=== PATIENT | female | born 1965 | race Caucasian/White ===

== ENCOUNTER 2017-04-08 10:02 | Inpatient (IN) | payer OTHER ==
[~2017-04-08] VITALS: Ht 154.9 cm; Wt 99.3 kg
[2017-04-08] VITALS (11 sets, daily range): BP systolic 131–161; BP diastolic 76–106; PULSE 89–106; RESP 16–21; TEMP 96.3–99.9; O2SAT 91–97
[~2017-04-08 10:02] MED LIST: ALBU2.5I INH; ALBU8I INH; AMBI10TA PO; ATOR20TA PO; BUTA1CAP7 PO; CARI1TAB34 PO; CITA20 PO; DICL75 PO; GLIM2TAB PO; IPRA0.02 NEB; LEVA500T PO; LISI-360 PO; LOSA25 PO; NOVORP2 SQ; PERC5TAB12 PO; PRED10 PO; PROT40TA PO; TRAZ150T2 PO; XANA1TAB6 PO
[2017-04-08] MEDS ORDERED: GLIM4TAB PO (10:22)
[2017-04-08] MEDS ORDERED: CITA40TA4 PO (10:22)
[2017-04-08] MEDS ORDERED: OXYC-432 PO (10:22)
[2017-04-08] MEDS ORDERED: ATOR20TA15 PO (10:22)
[2017-04-08] MEDS ORDERED: PANT40TA3 PO (10:22)
[2017-04-08] MEDS ORDERED: FLUTI220I INH (10:22)
[2017-04-08] MEDS ORDERED: ALBU0.08 NEB (10:22)
[2017-04-08] MEDS ORDERED: SOMA350T PO (10:22)
[2017-04-08] MEDS ORDERED: ESTR1.25 PO (10:22)
[2017-04-08] MEDS ORDERED: LOSA50TA PO (10:22)
[2017-04-08] MEDS ORDERED: ALPR0.5T3 PO (10:22)
[2017-04-08] MEDS ORDERED: ZOLP10TA3 PO (10:22)
[2017-04-08] MEDS ORDERED: RESP: RACEPINEPHRINE 2.25% 0.5 ML NEB NEB ONE (10:30)
[2017-04-08] MEDS ORDERED: DEXAMETHASONE SOD PHOS 20 MG/5 ML VIAL IV PUSH ONE (10:30)
--- NOTE | 2017-04-08 10:34 | PD ---
HPI Chief Complaint: Chest Pain Time Seen by Provider: 10:20 Travel History International Travel<30 days: No Contact w/Intl Traveler<30days: No Traveled to known affect area: No History of Present Illness HPI The patient was seen and examined in the presence of the nurse. This patient complains of shortness of breath and dry hacking cough. She has chest pain. Symptoms have been going on 3 days. Pain is worse with certain movement or pressure or deep breath. She has COPD and has chronically very bad lungs. She quit smoking 6 years ago. She has no cardiac disease. Symptoms severity is moderate. No alleviating factors. PFSH Past Medical History Arthritis: Yes (ARTHRITIS) Asthma: Yes Autoimmune Disease: No Bipolar Disorder: Yes Anxiety: Yes Depression: Yes (BIPOLAR) Heart Rhythm Problems: No Cancer: Yes (UTERINE) Cardiac Catheterization: No Cardiovascular Problems: No High Cholesterol: Yes Chemotherapy: No Chest Pain: No Congestive Heart Failure: No COPD: Yes Cerebrovascular Accident: No Coronary Artery Disease: No Diabetes: Yes Patient Takes Glucophage: No Diminished Hearing: No Endocrine: No Fibromyalgia: Yes Gastrointestinal Disorders: No GERD: No Genitourinary: No Hiatal Hernia: No Hypertension: Yes Immune Disorder: No Implanted Vascular Access Dvce: No Kidney Stones: No Musculoskeletal: Yes (FIBROMYALGIA) Neurologic: Yes Psychiatric: Yes (ANXIETY) Reproductive: No Respiratory: Yes Immunizations Current: Yes Migraines: Yes Pneumonia: Yes Radiation Therapy: No Renal Failure: No Sleep Apnea: No Thyroid Disease: No Ulcer: No Influenza Vaccination: No ?: Not Menopausal: Yes : 0 Past Surgical History Abdominal Surgery: No AICD: No Arteriovenous Shunt: No Cardiac Surgery: No Coronary Artery Bypass Graft: No Ear Surgery: No Endocrine Surgery: No Eye Surgery: No Genitourinary Surgery: No Gynecologic Surgery: Yes (HYSTERECTOMY) Hysterectomy: Yes Insulin Pump: No Joint Replacement: Yes (METAL IMPLANT IN LEFT KNEE RT KNEE) Oral Surgery: No Pacemaker: No Thoracic Surgery: No Tonsillectomy: Yes Other Surgery: Yes (LEFT TOTAL KNEE) Family History Family Myocardial Infarction: Yes Social History Alcohol Use: No Tobacco Use: No (QUIT 2011) Substance Use: No Allergies-Medications (Allergen,Severity, Reaction): Coded Allergies: Fluoxetine (Verified Allergy, Severe, MAKE MORE DEPRESSED, 04/08/17) Sulfa (Verified Allergy, Severe, SWELLING AND TONGUE BLISTERS, 04/08/17) Dilaudid (Unverified Allergy, Intermediate, ITCHING, 04/08/17) Metformin (Verified Adverse Reaction, Intermediate, "MAKES ME FEEL LIKE CRAP", 04/08/17) Reported Meds & Prescriptions Reported Meds & Active Scripts Active Reported Albuterol Neb (Albuterol Sulfate) 2.5 Mg/3 Ml Neb 2.5 Inh NEB TID NEB PRN Citalopram (Citalopram Hydrobromide) 40 Mg Tab 40 Mg PO HS Flovent Hfa 12 GM Inh (Fluticasone Propionate) 220 Mcg/Act Inh 2 Puff INH BID Use daily at the same time. Atorvastatin (Atorvastatin Calcium) 20 Mg Tab 20 Mg PO HS Glimepiride 4 Mg Tab 4 Mg PO BIDAC Losartan (Losartan Potassium) 50 Mg Tab 50 Mg PO DAILY Pantoprazole (Pantoprazole Sodium) 40 Mg Tab 40 Mg PO BID Soma (Carisoprodol) 350 Mg Tab 350 Mg PO BID PRN Zolpidem (Zolpidem Tartrate) 10 Mg Tab 10 Mg PO HS PRN Oxycodone-Acetaminophen 5-325 mg Tab 1 Tab PO TID PRN Alprazolam 0.5 Mg Tab 0.5 Mg PO Q6H PRN Premarin (Estrogens Conjugated) 1.25 Mg Tab 1.25 Mg PO DAILY Review of Systems General / Constitutional: No: Fever Eyes: No: Visual changes HENT: No: Headaches Cardiovascular: Positive: Chest Pain or Discomfort Respiratory: Positive: Cough, Shortness of Breath Gastrointestinal: No: Abdominal Pain Genitourinary: No: Dysuria Musculoskeletal: No: Pain Skin: No Rash Neurologic: No: Weakness Psychiatric: No: Depression Endocrine: No: Polydipsia Hematologic/Lymphatic: No: Easy Bruising Physical Exam Narrative GENERAL: Well-nourished, well-developed patient with chest pain and stridor and dry hacking cough. SKIN: Focused skin assessment reveals no rash and nodules. Skin is Warm and dry. HEAD: Atraumatic. Normocephalic. EYES: Pupils equal and round. No scleral icterus. No injection or drainage. ENT: No nasal bleeding or discharge. Mucous membranes pink and moist. NECK: Trachea midline. No JVD. CARDIOVASCULAR: Regular rate and rhythm. No murmur appreciated. RESPIRATORY: No accessory muscle use. Clear to auscultation in the lung dubon but she has mild stridor. Breath sounds equal bilaterally. GASTROINTESTINAL: Abdomen soft, non-tender, nondistended. Hepatic and splenic margins not palpable. MUSCULOSKELETAL: No obvious deformities. No clubbing. No cyanosis. No edema. Has very clear-cut and readily reproducible chest wall tenderness on either side of sternum. NEUROLOGICAL: Awake and alert. No obvious cranial nerve deficits. Motor grossly within normal limits. Normal speech. PSYCHIATRIC: Appropriate mood and affect; insight and judgment normal. Data Data Last Documented VS Vital Signs Date Time Temp Pulse Resp B/P Pulse Ox O2 Delivery O2 Flow Rate FiO2 04/08/17 11:30 90 18 131/77 95 Nasal Cannula 1 04/08/17 10:07 98.5 Orders Electrocardiogram (04/08/17 10:12) Complete Blood Count With Diff (04/08/17 10:12) Basic Metabolic Panel (Bmp) (04/08/17 10:12) Ckmb (Isoenzyme) Profile (04/08/17 10:12) Troponin I (04/08/17 10:12) Chest, Single Ap (04/08/17 10:12) Iv Access Insert/Monitor (04/08/17 10:12) Ecg Monitoring (04/08/17 10:12) Oxygen Administration (04/08/17 10:12) Oximetry (04/08/17 10:12) Racemic Epinephrine 2.25% Neb (Racepinep (04/08/17 10:30) Dexamethasone Inj (Decadron Inj) (04/08/17 10:30) Soft Tissue Neck (04/08/17 ) Albuterol-Ipratropium Neb (Duoneb Neb) (04/08/17 11:45) Albuterol-Ipratropium Neb (Duoneb Neb) (04/08/17 11:45) Ceftriaxone Inj (Rocephin Inj) (04/08/17 12:00) Azithromycin Inj (Zithromax Inj) (04/08/17 12:00) Admit Order (Ed Use Only) (04/08/17 12:00) Labs Laboratory Tests Test 04/08/17 10:30 White Blood Count 12.7 TH/MM3 Red Blood Count 5.31 MIL/MM3 Hemoglobin 13.0 GM/DL Hematocrit 41.8 % Mean Corpuscular Volume 78.7 FL Mean Corpuscular Hemoglobin 24.5 PG Mean Corpuscular Hemoglobin 31.2 % Concent Red Cell Distribution Width 15.2 % Platelet Count 525 TH/MM3 Mean Platelet Volume 7.1 FL Neutrophils (%) (Auto) 80.7 % Lymphocytes (%) (Auto) 15.2 % Monocytes (%) (Auto) 2.6 % Eosinophils (%) (Auto) 1.0 % Basophils (%) (Auto) 0.5 % Neutrophils # (Auto) 10.3 TH/MM3 Lymphocytes # (Auto) 1.9 TH/MM3 Monocytes # (Auto) 0.3 TH/MM3 Eosinophils # (Auto) 0.1 TH/MM3 Basophils # (Auto) 0.1 TH/MM3 CBC Comment DIFF FINAL Differential Comment Sodium Level 141 MEQ/L Potassium Level 4.0 MEQ/L Chloride Level 104 MEQ/L Carbon Dioxide Level 26.4 MEQ/L Anion Gap 11 MEQ/L Blood Urea Nitrogen 17 MG/DL Creatinine 0.70 MG/DL Estimat Glomerular Filtration 89 ML/MIN Rate Random Glucose 130 MG/DL Calcium Level 8.9 MG/DL Total Creatine Kinase 63 U/L Troponin I LESS THAN 0.02 NG/ML MDM Medical Decision Making Medical Screen Exam Complete: Yes Emergency Medical Condition: Yes Medical Record Reviewed: Yes Differential Diagnosis Stridor, croup, COPD, ACS Narrative Course I have reviewed the patient's electronic medical record. IV placed I reviewed the EKG which shows sinus rhythm without ST elevation I reviewed the chest x-ray which shows a right lower lobe consolidation I reviewed her soft tissue neck x-ray Extended cardiac monitoring shows sinus rhythm without ectopy CBC shows minor leukocytosis of 13,000 Metabolic profile is normal CK is normal Troponin is normal I gave her IV Rocephin and IV Zithromax I've ordered a racemic epinephrine nebulizer treatment for some mild stridor. I gave her dose of Decadron 10 mg IV. Patient has a community-acquired pneumonia on top of COPD and is essentially hypoxic with saturation of 89% on room air and 93 on 2 L She will require admission for oxygen support and IV antibiotics and further nebulizers. I reviewed with Dr. Michele phillip Critical Care Narrative Aggregate critical care time was 35 minutes. Time to perform other separately billable procedures was not included in the critical care time. My time did not include minutes spent treating any other patients simultaneously or on activities that did not directly contribute to the patient's treatment. The services I provided to this patient were to treat and/or prevent clinically significant deterioration that could result in: Hypoxemic brain injury, respiratory failure, cardiopulmonary arrest, aspiration I provided critical care services requiring my management, as noted below: Chart data review, documentation time, medication orders and management, vital sign assessments/reviewing monitor data, ordering and reviewing lab tests, ordering and interpreting/reviewing x-rays and diagnostic studies, care of the patient and discussion of the patient with the admitting physicians. Diagnosis Primary Impression: Acute respiratory failure with hypoxia Additional Impressions: Right lower lobe pneumonia Qualified Code: J18.1 - Pneumonia of right lower lobe due to infectious organism Chronic obstructive pulmonary disease with acute exacerbation Admitting Information Admitting Physician Requests: Admit Marito Waller MD Apr 08, 2017 10:34
[2017-04-08 10:41] LABS: AUTOMATED NEUTROPHIL # 10.3 TH/MM3 (1.8-7.7); BASOPHIL # 0.1 TH/MM3 (0-0.2); BASOPHIL % 0.5 % (0.0-2.0); EOSINOPHIL # 0.1 TH/MM3 (0-0.4); HEMATOCRIT 41.8 % (35.0-46.0); LYMPH % 15.2 % (9.0-44.0); LYMPHOCYTE # 1.9 TH/MM3 (1.0-4.8); MEAN CELL VOLUME 78.7 FL (80.0-100.0); MEAN CORPUSCULAR HEMOGLOBIN 24.5 PG (27.0-34.0); MEAN CORPUSCULAR HGB CONC 31.2 % (32.0-36.0); MONO % 2.6 % (0.0-8.0); NEUT % 80.7 % (16.0-70.0); PLATELET COUNT 525 TH/MM3 (150-450); RED BLOOD COUNT 5.31 MIL/MM3 (4.00-5.30); RED CELL DISTRIBUTION WIDTH 15.2 % (11.6-17.2); WHITE BLOOD COUNT 12.7 TH/MM3 (4.0-11.0)
[2017-04-08 10:45] LABS: HEMO FLAGS DIFF FINAL
[2017-04-08 10:52] LABS: CHLORIDE 104 MEQ/L (98-107); SODIUM (NA) 141 MEQ/L (136-145)
--- NOTE | 2017-04-08 10:54 | RADHPO ---
EXAM DATE/TIME: 04/08/2017 10:35 [facility] COMPARISON: CHEST SINGLE AP, April 07, 2016, 10:51. INDICATIONS : Chest pain during respirations. Cough. MEDICAL HISTORY : Hypercholesterolemia. Chronic obstructive pulmonary disease. Emphysema. Asthma. Fibromyalgia. Art hitis. Diabetic. Bialteral total knees. Uterine CA. SURGICAL HISTORY : Tonsillectomy. Hysterectomy. ENCOUNTER: Initial ACUITY: 1 day PAIN SCORE: 9/10 LOCATION: chest FINDINGS: A single portable frontal view of the chest shows volume loss and consolidation involving the right l ower lobe. This obscures the right heart border and medial portion right hemidiaphragm. Left lung is clear. No effusions. Heart is normal in size. Bony structures are unremarkable. CONCLUSION: Consolidation involving the right lower lobe worrisome for infectious infiltrate. Celestino Waller Jr., MD on April 08, 2017 at 10:51 Board Certified Radiologist. This report was verified electronically.
[2017-04-08 10:56] LABS: ANION GAP 11 MEQ/L (5-15); BICARBONATE 26.4 MEQ/L (21.0-32.0); BLOOD UREA NITROGEN 17 MG/DL (7-18)
[2017-04-08 10:59] LABS: GLOMERULAR FILTRATION RATE 89 ML/MIN (>89)
[2017-04-08 11:06] LABS: CREATINE KINASE 63 U/L (26-192)
[2017-04-08] MEDS ORDERED: RESP: ALBUTEROL 2.5 MG/IPRATROPIUM 0.5 MG NEB (SCH) NEB ONE ×2 (11:45)
--- NOTE | 2017-04-08 11:48 | RADHPO ---
EXAM DATE/TIME: 04/08/2017 11:09 [facility] COMPARISON: No previous studies available for comparison. INDICATIONS : Stridor. Cough MEDICAL HISTORY : None. SURGICAL HISTORY : None. ENCOUNTER: Initial ACUITY: 1 day PAIN SCORE: 0/10 LOCATION: Cervical spine FINDINGS: There are degenerative changes at C5-C6 with minimal posterior osteophytosis. Alignment is anatomic. There are minimal degenerative changes at C6-C7. There is good preservation of vertebral body height s. CONCLUSION: 1. Degenerative changes as described above. 2. There is no evidence for a soft tissue mass. Gaudencio Hoover MD FACR on April 08, 2017 at 11:40 Board Certified Radiologist. This report was verified electronically.
[2017-04-08] MEDS ORDERED: AZITHROMYCIN INJ 500 MG in SODIUM CHLOR 0.9% 250 ML INJ 250 ML IV ONE (12:00)
[2017-04-08] MEDS ORDERED: cefTRIAXone INJ 1,000 MG in SODIUM CHLORIDE 0.9% INJ 100 ML IV ONE (12:00)
[2017-04-08] MEDS ORDERED: GLUCAGON 1 MG/ML VIAL OTHER PRN (14:15)
[2017-04-08] MEDS ORDERED: DEXTROSE 50% IN WATER 50 ML VIAL(D50) IV PRN (14:15)
[2017-04-08] MEDS: ENOXAPARIN SODIUM 40 MG/0.4 ML SYRINGE SQ SCH (14:15)
[2017-04-08] MEDS: ALPRAZolam 0.5 MG TAB PO PRN ×2 (14:44→23:13)
[2017-04-08] MEDS: oxyCODONE/ACETAMINOPHEN 5 MG/325 MG TAB PO PRN ×2 (14:44→20:19)
[2017-04-08] MEDS: methylPREDNISolone SOD SUCC 40 MG/1 ML VIAL IV PUSH SCH ×2 (14:51→21:20)
--- NOTE | 2017-04-08 15:04 | MH ---
cc: TENISHA ROWLAND M.D. DATE OF ADMISSION: 04/08/2017 ADMISSION DIAGNOSIS 1. Right lower lobe pneumonia. 2. COPD with acute exacerbation. 3. Asthma. 4. Type 2 diabetes mellitus. 5. Hypertension. 6. Hyperlipidemia. 7. Fibromyalgia. 8. Recurrent major depression on medication. 9. Bipolar disorder. 10. Anxiety. 11. Fatty liver. 12. History of uterine cancer with prior hysterectomy. PERTINENT HISTORY This is a 51-year-old white female who started with a cough about five days ago. She has had intermittent wheezing. She has been coughing frequently, has had chest and nasal congestion and postnasal drip. She had some sweats in the last couple of nights but she has not checked her temperature. She had increased respiratory distress today and has some pleuritic type chest pain on the right side of her chest over the last couple days intermittently. She came to the ED where she was just slightly hypoxic. She was wheezing a lot. They have given her breathing treatments, even gave her some racemic epinephrine because she had some stridorous breath sounds around her neck. This seemed to help with her breathing and her increased upper airway sounds according to the ED doctor. According to the ED doctor she had been using her nebulizer treatments at home. A chest x-ray showed a consolidation in the right lower lobe. She is admitted for treatment of pneumonia and COPD exacerbation. She states at the time that I am seeing her that her breathing is better, her wheezing is better than when she was in the ED. She had an admission for COPD exacerbation last year at this time in April. PAST MEDICAL HISTORY 1. Hypertension. 2. Hyperlipidemia. 3. Type 2 diabetes mellitus. 4. COPD. 5. Asthma. 6. Bipolar disorder. 7. Recurrent major depression. 8. Anxiety. 9. Fatty liver. 10. Fibromyalgia. 11. Hysterectomy for uterine cancer several years ago. 12. Pneumonia in the past. 13. Chronic interstitial cystitis and occasionally requires intravesical treatment by a urologist in [place] that she is seeing. 14. Inflammatory polyarthritis. She has had no heart disease, kidney disease, peptic ulcer diagnosis, colon disease, stroke or seizure. PAST SURGICAL HISTORY 1. Bilateral total knee arthroplasty. 2. Tonsillectomy. 3. SYLVIE and BSO. ALLERGIES 1. METFORMIN. 2. FLUOXETINE. 3. SULFA APPARENTLY CAUSED BLISTERS ON HER TONGUE IN THE PAST. 4. ITCHING WITH DILAUDID BUT NO TRUE RASH. MEDICATIONS 1. Codeine regularly for her fibromyalgia and arthritis pain. 2. Zolpidem 10 mg at night. 3. Trazodone 150 mg at night. 4. Percocet 5/325, three times a day as needed for pain. She does not take it that often. 5. Soma 350 mg every 6 hours as needed. 6. Alprazolam 0.5 mg three times a day p.r.n. 7. Albuterol nebulizer solution along with Atrovent nebulizer solution as needed for breathing difficulties. 8. Glimepiride 4 mg twice a day. 9. Diclofenac 75 mg twice a day . 10. Pantoprazole 40 mg twice a day. 11. Citalopram 40 mg a day. 12. Atorvastatin 20 mg a day. 13. Losartan 50 mg a day. 14. Pantoprazole 40 mg twice a day. 15. Novolin R insulin at home that she only uses when she goes on steroids. 16. Estrogen/methyltestosterone 0.625/1.25 mg one daily. 17. Colace twice a day. FAMILY HISTORY Father at 62 of alcoholic liver disease. Mother at 73 of dementia, also a history of lung cancer. SOCIAL HISTORY She is single, lives alone. Does not use alcohol. She quit smoking around 2011, smoked a pack a day for about 25 years. 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 REVIEW OF SYSTEMS GENERAL: She has had sweats as mentioned. No documented fever. HEENT: Nasal congestion and postnasal drip. No headache. No sore throat. CARDIOVASCULAR: No typical angina symptoms. Has had the pleuritic chest pain. No palpitations. PULMONARY: As mentioned. GI: No nausea, vomiting, heartburn, indigestion, melena or rectal bleeding. No abdominal pain. : No dysuria, hematuria or incontinence. MUSCULOSKELETAL: She has just some pain from fibromyalgia and arthritis. PSYCHIATRIC: She is stable with her depression and anxiety. She does have an upcoming appointment with a psychiatrist the latter part of this month. NEUROLOGIC: No sensory loss, confusion, headache or motor weakness. PHYSICAL EXAMINATION GENERAL: A pleasant female who appears to be in no distress. VITAL SIGNS: Pulse is 90, respirations 16, BP 132/76. O2 sat on one liter is 94%. HEENT: Pupils equal. Sclera non-icteric. Nose without lesion. Mouth without inflammation or lesion. NECK: Without JVD. No bruit. HEART: Regular rate and rhythm. No murmur. LUNGS: Just occasional expiratory wheeze heard in the right lower to mid lung area. ABDOMEN: Soft, nontender. No mass. EXTREMITIES: No edema. Pulses 2+ in both feet. No calf tenderness. SKIN: Negative. NEUROLOGIC: Oriented x3. Cranial nerves, motor and sensory intact. LABORATORY White count 12.7, hemoglobin 13, MCV 78.7, platelets 525,000, probably secondary to her inflammatory arthritis. Troponin and CK were normal. Calcium was normal. Random glucose 130, GFR 89, BUN 17, creatinine 0.7, sodium 141, potassium 4.0, chloride 104, CO2 26.4. IMAGING Chest x-ray report as mentioned showed right lower lobe consolidation. ASSESSMENT As noted. PLAN She has been admitted, placed on Rocephin and Zithromax IV. We will put her on Solu-Medrol IV for her COPD and treat her with DuoNeb treatments. She will be on supplemental oxygen to maintain her oxygen saturation. She will be continued on her regular medicine. We will order sliding scale glucose coverage. I did originally put her on a diabetic diet which she is specifically stated she does not want to be on a diabetic diet so she was just put on a standard diet. Will give her Lovenox for DVT prophylaxis. She is on Pantoprazole already which will cover for GI prophylaxis. Hopefully she will only require about 48 hours of treatment and can be transitioned to an oral antibiotic and sent home. MD ABDIAS Colon/SHEILA /2:14 PM /2:28 PM
[2017-04-08] MEDS: RESP: ALBUTEROL 2.5 MG/IPRATROPIUM 0.5 MG NEB (PRN) NEB ×3 (15:12→21:34)
[2017-04-08] MEDS: GLIMEPIRIDE 4 MG TAB PO SCH (16:03)
[2017-04-08] MEDS: INSULIN ASPART SUPPLEMENTAL SCALE SQ SCH ×2 (16:13→20:31)
[2017-04-08] MEDS: PANTOPRAZOLE SOD 40 MG DELAYED RELEASE TAB PO SCH (20:11)
[2017-04-08] MEDS: CITALOPRAM HYDROBROMIDE 40 MG TAB PO SCH (20:11)
[2017-04-08] MEDS: ATORVASTATIN 20 MG TAB PO SCH (20:11)
[2017-04-08] MEDS: ZOLPIDEM TARTRATE 10 MG TAB PO PRN (20:12)
[2017-04-08] MEDS: CARISOPRODOL 350 MG TAB PO PRN (21:20)
[2017-04-09] VITALS (7 sets, daily range): BP systolic 113–158; BP diastolic 60–91; PULSE 86–112; RESP 20; TEMP 96.9–98.6; O2SAT 90–97
[2017-04-09] MEDS: oxyCODONE/ACETAMINOPHEN 5 MG/325 MG TAB PO PRN ×3 (03:43→22:47)
[2017-04-09] MEDS: RESP: ALBUTEROL 2.5 MG/IPRATROPIUM 0.5 MG NEB (PRN) NEB ×4 (03:58→21:08)
[2017-04-09 05:47] LABS: AUTOMATED NEUTROPHIL # 14.6 TH/MM3 (1.8-7.7); BASOPHIL # 0.3 TH/MM3 (0-0.2); EOSINOPHIL # 0.1 TH/MM3 (0-0.4); EOSINOPHIL % 0.7 % (0.0-4.0); HEMATOCRIT 37.7 % (35.0-46.0); HEMO FLAGS DIFF FINAL; LYMPH % 8.9 % (9.0-44.0); LYMPHOCYTE # 1.5 TH/MM3 (1.0-4.8); MEAN CELL VOLUME 78.2 FL (80.0-100.0); MEAN CORPUSCULAR HEMOGLOBIN 25.6 PG (27.0-34.0); MEAN CORPUSCULAR HGB CONC 32.8 % (32.0-36.0); MONO % 2.7 % (0.0-8.0); NEUT % 85.7 % (16.0-70.0); PLATELET COUNT 471 TH/MM3 (150-450); RED BLOOD COUNT 4.82 MIL/MM3 (4.00-5.30); RED CELL DISTRIBUTION WIDTH 14.5 % (11.6-17.2)
[2017-04-09 05:54] LABS: CHLORIDE 102 MEQ/L (98-107); POTASSIUM 4.3 MEQ/L (3.5-5.1); SODIUM (NA) 136 MEQ/L (136-145)
[2017-04-09 06:07] LABS: ANION GAP 9 MEQ/L (5-15); BICARBONATE 25.2 MEQ/L (21.0-32.0)
[2017-04-09 06:11] LABS: BLOOD UREA NITROGEN 17 MG/DL (7-18); GLOMERULAR FILTRATION RATE 78 ML/MIN (>89)
[2017-04-09] MEDS: GLIMEPIRIDE 4 MG TAB PO SCH ×2 (06:42→16:50)
[2017-04-09] MEDS: methylPREDNISolone SOD SUCC 40 MG/1 ML VIAL IV PUSH SCH ×3 (06:42→22:47)
[2017-04-09] MEDS: INSULIN ASPART SUPPLEMENTAL SCALE SQ SCH ×3 (06:52→17:45)
[2017-04-09] MEDS: ALPRAZolam 0.5 MG TAB PO PRN ×2 (06:52→22:46)
--- NOTE | 2017-04-09 08:05 | HHI.PR ---
Subjective Remarks Still coughing and occasional wheezing. Her breathing overall is stable. Objective Vitals Vital Signs Date Time Temp Pulse Resp B/P Pulse Ox O2 Delivery O2 Flow Rate FiO2 04/09/17 00:00 97.8 112 20 158/75 93 04/08/17 20:13 94 Nasal Cannula 2.00 04/08/17 20:00 98.4 94 21 140/89 92 04/08/17 20:00 92 Nasal Cannula 2.00 Humidified 04/08/17 17:25 99.9 106 20 161/84 94 04/08/17 17:15 96.3 98 20 153/106 97 04/08/17 14:20 96.3 98 20 153/105 97 04/08/17 12:53 89 16 132/76 94 Nasal Cannula 1 04/08/17 11:30 90 18 131/77 95 Nasal Cannula 1 04/08/17 10:38 93 Nasal Cannula 2.00 04/08/17 10:24 18 93 Nasal Cannula 2 04/08/17 10:24 93 Nasal Cannula 2 04/08/17 10:12 97 18 92 Nasal Cannula 2 04/08/17 10:07 98.5 99 18 144/82 91 04/08/17 04/08/17 04/09/17 15:00 23:00 07:00 Intake Total 720 ml 420 ml Balance 720 ml 420 ml Intake Oral 720 ml 420 ml # Voids 3 5 # Bowel Movements 1 Result Diagram: 04/09/17 0525 04/09/17 0525 Other Results Laboratory Tests Test 04/08/17 04/09/17 10:30 05:25 White Blood Count 12.7 TH/MM3 17.0 TH/MM3 Red Blood Count 5.31 MIL/MM3 4.82 MIL/MM3 Hemoglobin 13.0 GM/DL 12.4 GM/DL Hematocrit 41.8 % 37.7 % Mean Corpuscular Volume 78.7 FL 78.2 FL Mean Corpuscular Hemoglobin 24.5 PG 25.6 PG Mean Corpuscular Hemoglobin 31.2 % 32.8 % Concent Red Cell Distribution Width 15.2 % 14.5 % Platelet Count 525 TH/MM3 471 TH/MM3 Mean Platelet Volume 7.1 FL 7.5 FL Neutrophils (%) (Auto) 80.7 % 85.7 % Lymphocytes (%) (Auto) 15.2 % 8.9 % Monocytes (%) (Auto) 2.6 % 2.7 % Eosinophils (%) (Auto) 1.0 % 0.7 % Basophils (%) (Auto) 0.5 % 2.0 % Neutrophils # (Auto) 10.3 TH/MM3 14.6 TH/MM3 Lymphocytes # (Auto) 1.9 TH/MM3 1.5 TH/MM3 Monocytes # (Auto) 0.3 TH/MM3 0.5 TH/MM3 Eosinophils # (Auto) 0.1 TH/MM3 0.1 TH/MM3 Basophils # (Auto) 0.1 TH/MM3 0.3 TH/MM3 CBC Comment DIFF FINAL DIFF FINAL Differential Comment Sodium Level 141 MEQ/L 136 MEQ/L Potassium Level 4.0 MEQ/L 4.3 MEQ/L Chloride Level 104 MEQ/L 102 MEQ/L Carbon Dioxide Level 26.4 MEQ/L 25.2 MEQ/L Anion Gap 11 MEQ/L 9 MEQ/L Blood Urea Nitrogen 17 MG/DL 17 MG/DL Creatinine 0.70 MG/DL 0.78 MG/DL Estimat Glomerular Filtration 89 ML/MIN 78 ML/MIN Rate Random Glucose 130 MG/DL 296 MG/DL Calcium Level 8.9 MG/DL 9.2 MG/DL Total Creatine Kinase 63 U/L Troponin I LESS THAN 0.02 NG/ML Imaging Last Impressions Chest X-Ray 04/08/17 1012 Signed Impressions: Service Date/Time: Saturday, April 08, 2017 10:35 - CONCLUSION: Consolidation involving the right lower lobe worrisome for infectious infiltrate. Celestino Waller Jr., MD Objective Remarks Exam: Obese female in no distress. HEENT: pupils equal, mouth negative, no scleral icterus Neck: No JVD Heart: RRR without murmurs Lungs: Just occasional expiratory wheezing Abdomen: Soft, nontender Extremities: no edema Neuro: alert, oriented A/P Assessment and Plan Assessment: --RLL pneumonia --COPD exacerbation --Type 2 diabetes mellitus --Hypertension --Hyperlipidemia --Fibromyalgia --Inflammatory polyarthritis --Recurrent major depression/Bipolar disorder/Anxiety Plan: Continue Rocephin and Zithromax IV Continue IV steroids Continue nebulizer treatments. Continue oxygen Continue Lovenox for DVT prophylaxis Continue sliding scale for his diabetes mellitus. Repeat chest x-ray. Mehrdad Gutierrez MD Apr 09, 2017 08:05
[2017-04-09] MEDS ORDERED: diphenhydrAMINE HCL 25 MG CAP PO PRN (09:15)
--- NOTE | 2017-04-09 09:20 | RADHPO ---
EXAM DATE/TIME: 04/09/2017 08:42 This report includes an Addendum and supersedes previous reports for this exam. [facility] COMPARISON: SOFT TISSUE NECK, April 08, 2017, 11:09. INDICATIONS : Cough. Pneumonia. MEDICAL HISTORY : None. Hypercholesterolemia. Chronic obstructive pulmonary disease. Emphysema. Asthma. Fibromyal nia. Arthitis. Diabetic. Bialteral total knees. Uterine CA. SURGICAL HISTORY : None. Tonsillectomy. Hysterectomy. ENCOUNTER: Subsequent ACUITY: 2 days PAIN SCORE: 0/10 LOCATION: chest FINDINGS: PA and lateral views of the chest demonstrate the lungs to be symmetrically aerated without evidence of mass, infiltrate or effusion. The cardiomediastinal contours are unremarkable. Osseous structure s are intact. CONCLUSION: 1. No acute cardiopulmonary findings. Richard Hoover MD on April 09, 2017 at 9:17 Board Certified Radiologist. This report was verified electronically. ADDENDUM: COMPARISON: CHEST SINGLE AP, April 08, 2017, 10:35. The study is compared to previous of 04/08/17. The area of concern in the right middle lobe on previous study as well-visualized today. This area is clear. The appearance on prior was likely secondary to poor inspiratory effort on previous examination. Richard Hoover MD on April 15, 2017 at 10:41 Board Certified Radiologist. This report was verified electronically.
[2017-04-09 09:52] LABS: TRANSFERRIN IRON PROFILE 296 MG/DL (200-360)
[2017-04-09] MEDS: PANTOPRAZOLE SOD 40 MG DELAYED RELEASE TAB PO SCH ×2 (11:05→22:46)
[2017-04-09] MEDS: LOSARTAN 50 MG TAB PO SCH (11:05)
[2017-04-09] MEDS: ENOXAPARIN SODIUM 40 MG/0.4 ML SYRINGE SQ SCH (12:47)
[2017-04-09] MEDS ORDERED: cefTRIAXone INJ 1,000 MG in SODIUM CHLORIDE 0.9% INJ 100 ML IV SCH (13:00)
[2017-04-09] MEDS ORDERED: AZITHROMYCIN INJ 500 MG in SODIUM CHLOR 0.9% 250 ML INJ 250 ML IV SCH (13:00)
--- NOTE | 2017-04-09 14:06 | EKG ---
Date Performed: 04/08/2017 Time Performed: 10:02:16 PTAGE: 51 years EKG: Sinus rhythm Leftward axis Possible anterior infarct - age undetermined Low QRS voltages in precordial leads Abno rmal ECG PREVIOUS TRACING : 04/07/2016 10.23 Since previous tracing, no significant change noted DOCTOR: Petr Sosa Interpretating Date/Time 04/09/2017 13:59:01
[2017-04-09] MEDS: CITALOPRAM HYDROBROMIDE 40 MG TAB PO SCH (22:45)
[2017-04-09] MEDS: ZOLPIDEM TARTRATE 10 MG TAB PO PRN (22:45)
[2017-04-09] MEDS: CARISOPRODOL 350 MG TAB PO PRN (22:46)
[2017-04-09] MEDS: ATORVASTATIN 20 MG TAB PO SCH (22:46)
[2017-04-10] VITALS: BP 132/84; PULSE 81; RESP 20; TEMP 95.7; O2SAT 98
[2017-04-10] MEDS: INSULIN ASPART SUPPLEMENTAL SCALE SQ SCH ×5 (01:22→20:49)
[2017-04-10] MEDS: oxyCODONE/ACETAMINOPHEN 5 MG/325 MG TAB PO PRN (06:50)
[2017-04-10] MEDS: ALPRAZolam 0.5 MG TAB PO PRN ×2 (06:50→13:45)
[2017-04-10] MEDS: methylPREDNISolone SOD SUCC 40 MG/1 ML VIAL IV PUSH SCH ×3 (06:50→18:38)
[2017-04-10] MEDS: GLIMEPIRIDE 4 MG TAB PO SCH ×2 (06:50→16:45)
[2017-04-10 07:14] LABS: AUTOMATED NEUTROPHIL # 16.6 TH/MM3 (1.8-7.7); BASOPHIL # 0.1 TH/MM3 (0-0.2); BASOPHIL % 0.3 % (0.0-2.0); EOSINOPHIL % 0.2 % (0.0-4.0); HEMATOCRIT 41.1 % (35.0-46.0); LYMPH % 10.4 % (9.0-44.0); MEAN CELL VOLUME 79.4 FL (80.0-100.0); MEAN CORPUSCULAR HGB CONC 31.4 % (32.0-36.0); MONO % 2.6 % (0.0-8.0); NEUT % 86.5 % (16.0-70.0); PLATELET COUNT 512 TH/MM3 (150-450); RED BLOOD COUNT 5.18 MIL/MM3 (4.00-5.30); RED CELL DISTRIBUTION WIDTH 15.4 % (11.6-17.2); WHITE BLOOD COUNT 19.2 TH/MM3 (4.0-11.0)
[2017-04-10 07:15] LABS: POTASSIUM 4.8 MEQ/L (3.5-5.1)
[2017-04-10 07:16] LABS: HEMO FLAGS DIFF FINAL
[2017-04-10 07:26] LABS: BICARBONATE 28.9 MEQ/L (21.0-32.0)
[2017-04-10 07:45] VITALS: O2SAT 97
[2017-04-10] MEDS: RESP: ALBUTEROL 2.5 MG/IPRATROPIUM 0.5 MG NEB (PRN) NEB ×2 (07:46→14:25)
[2017-04-10 08:00] VITALS: BP 130/82; PULSE 79; RESP 20; TEMP 97; O2SAT 94
[2017-04-10] MEDS: PANTOPRAZOLE SOD 40 MG DELAYED RELEASE TAB PO SCH ×2 (08:33→20:39)
[2017-04-10] MEDS: LOSARTAN 50 MG TAB PO SCH (08:34)
[2017-04-10] MEDS ORDERED: predniSONE 20 MG TAB PO SCH (09:00)
[2017-04-10] MEDS ORDERED: methylPREDNISolone 4 MG TAB PO SCH (09:15)
--- NOTE | 2017-04-10 09:37 | HHI.PR ---
Subjective Remarks Patient still complaints of her breathing not quite right with still coughing and wheezing. She gets short of breath on exertion still. Objective Vitals Vital Signs Date Time Temp Pulse Resp B/P Pulse Ox O2 Delivery O2 Flow Rate FiO2 04/10/17 08:00 97.0 79 20 130/82 94 04/10/17 07:45 97 Nasal Cannula 2.00 04/10/17 07:00 97 97 04/10/17 00:00 95.7 81 20 132/84 98 04/09/17 21:08 97 Nasal Cannula 2.00 04/09/17 20:00 97.8 89 20 140/84 96 04/09/17 19:00 Nasal Cannula 2.00 04/09/17 16:00 98.6 111 20 148/91 97 04/09/17 14:45 Nasal Cannula 2.00 04/09/17 12:27 18 04/09/17 12:00 97.3 92 20 113/60 90 04/09/17 09:40 94 Nasal Cannula 2.00 04/09/17 04/09/17 04/10/17 15:00 23:00 07:00 Intake Total 1220 ml 1440 ml Balance 1220 ml 1440 ml Intake Oral 1220 ml 1440 ml # Voids 8 8 # Bowel Movements 0 Result Diagram: 04/10/17 0535 04/10/17 0535 Other Results Laboratory Tests Test 04/08/17 04/09/17 04/10/17 10:30 05:25 05:35 White Blood Count 12.7 TH/MM3 17.0 TH/MM3 19.2 TH/MM3 Red Blood Count 5.31 MIL/MM3 4.82 MIL/MM3 5.18 MIL/MM3 Hemoglobin 13.0 GM/DL 12.4 GM/DL 12.9 GM/DL Hematocrit 41.8 % 37.7 % 41.1 % Mean Corpuscular Volume 78.7 FL 78.2 FL 79.4 FL Mean Corpuscular Hemoglobin 24.5 PG 25.6 PG 25.0 PG Mean Corpuscular Hemoglobin 31.2 % 32.8 % 31.4 % Concent Red Cell Distribution Width 15.2 % 14.5 % 15.4 % Platelet Count 525 TH/MM3 471 TH/MM3 512 TH/MM3 Mean Platelet Volume 7.1 FL 7.5 FL 7.9 FL Neutrophils (%) (Auto) 80.7 % 85.7 % 86.5 % Lymphocytes (%) (Auto) 15.2 % 8.9 % 10.4 % Monocytes (%) (Auto) 2.6 % 2.7 % 2.6 % Eosinophils (%) (Auto) 1.0 % 0.7 % 0.2 % Basophils (%) (Auto) 0.5 % 2.0 % 0.3 % Neutrophils # (Auto) 10.3 TH/MM3 14.6 TH/MM3 16.6 TH/MM3 Lymphocytes # (Auto) 1.9 TH/MM3 1.5 TH/MM3 2.0 TH/MM3 Monocytes # (Auto) 0.3 TH/MM3 0.5 TH/MM3 0.5 TH/MM3 Eosinophils # (Auto) 0.1 TH/MM3 0.1 TH/MM3 0.0 TH/MM3 Basophils # (Auto) 0.1 TH/MM3 0.3 TH/MM3 0.1 TH/MM3 CBC Comment DIFF FINAL DIFF FINAL DIFF FINAL Differential Comment Sodium Level 141 MEQ/L 136 MEQ/L 139 MEQ/L Potassium Level 4.0 MEQ/L 4.3 MEQ/L 4.8 MEQ/L Chloride Level 104 MEQ/L 102 MEQ/L 103 MEQ/L Carbon Dioxide Level 26.4 MEQ/L 25.2 MEQ/L 28.9 MEQ/L Anion Gap 11 MEQ/L 9 MEQ/L 7 MEQ/L Blood Urea Nitrogen 17 MG/DL 17 MG/DL 24 MG/DL Creatinine 0.70 MG/DL 0.78 MG/DL 0.77 MG/DL Estimat Glomerular Filtration 89 ML/MIN 78 ML/MIN 80 ML/MIN Rate Random Glucose 130 MG/DL 296 MG/DL 186 MG/DL Calcium Level 8.9 MG/DL 9.2 MG/DL 8.7 MG/DL Total Creatine Kinase 63 U/L Troponin I LESS THAN 0.02 NG/ML Iron Level 38 MCG/DL Total Iron Binding Capacity 414 MCG/DL Percent Iron Saturation 9.2 % Imaging Last Impressions Chest X-Ray 04/09/17 0000 Signed Impressions: Service Date/Time: April 08:42 - CONCLUSION: 1. No acute cardiopulmonary findings. Richard Hoover MD Last Impressions Chest X-Ray 04/08/17 1012 Signed Impressions: Service Date/Time: Saturday, April 08, 2017 10:35 - CONCLUSION: Consolidation involving the right lower lobe worrisome for infectious infiltrate. Celestino Waller Jr., MD Objective Remarks Exam: Obese female in no distress. HEENT: pupils equal, mouth negative, no scleral icterus Neck: No JVD Heart: RRR without murmurs Lungs: Just occasional expiratory wheezing Abdomen: Soft, nontender Extremities: no edema Neuro: alert, oriented A/P Assessment and Plan Assessment: --Presumed RLL pneumonia on admission based on x-ray but chest x-ray yesterday showed no acute cardiopulmonary problem --COPD exacerbation and bronchitis --Type 2 diabetes mellitus --Hypertension --Hyperlipidemia --Fibromyalgia --Inflammatory polyarthritis --Recurrent major depression/Bipolar disorder/Anxiety Plan: Change Rocephin and Zithromax IV to IV Levaquin Change IV Methylprednisone to po Continue nebulizer treatments. Continue oxygen Continue Lovenox for DVT prophylaxis Continue sliding scale for his diabetes mellitus. Her WBC has gone up but likely due to steroids. Repeat CBC in AM. Mehrdad Gutierrez MD Apr 10, 2017 09:37
[2017-04-10] MEDS: LEVOFLOXACIN 750 MG PREMIX INJ 150 ML IV SCH (10:30)
[2017-04-10] MEDS: guaiFENesin/DEXTROMETHORPHAN 200 MG/20 MG/10 ML CUP PO PRN ×2 (10:32→14:37)
[2017-04-10] MEDS ORDERED: LEVOFLOXACIN 750 MG TAB PO SCH (11:00)
[2017-04-10] MEDS: ENOXAPARIN SODIUM 40 MG/0.4 ML SYRINGE SQ SCH (11:46)
[2017-04-10 12:00] VITALS: BP 153/98; PULSE 100; RESP 22; TEMP 97.8; O2SAT 93
[2017-04-10 16:00] VITALS: BP 144/91; PULSE 85; RESP 20; TEMP 97.5; O2SAT 97
[2017-04-10 20:00] VITALS: BP 143/88; PULSE 79; RESP 20; TEMP 97; O2SAT 96; O2SAT 97
[2017-04-10] MEDS: CITALOPRAM HYDROBROMIDE 40 MG TAB PO SCH (20:39)
[2017-04-10] MEDS: ATORVASTATIN 20 MG TAB PO SCH (20:39)
[2017-04-10] MEDS: CARISOPRODOL 350 MG TAB PO PRN (20:48)
[2017-04-10] MEDS: ZOLPIDEM TARTRATE 10 MG TAB PO PRN (20:48)
[2017-04-11] VITALS (7 sets, daily range): BP systolic 108–151; BP diastolic 75–93; PULSE 76–96; RESP 18–20; TEMP 97–98.5; O2SAT 93–98
[2017-04-11] MEDS: methylPREDNISolone SOD SUCC 40 MG/1 ML VIAL IV PUSH SCH ×4 (00:05→22:01)
[2017-04-11] MEDS: GLIMEPIRIDE 4 MG TAB PO SCH ×2 (06:32→17:20)
[2017-04-11 07:20] LABS: AUTOMATED NEUTROPHIL # 12.8 TH/MM3 (1.8-7.7); BASOPHIL % 0.2 % (0.0-2.0); EOSINOPHIL # 0.1 TH/MM3 (0-0.4); EOSINOPHIL % 0.7 % (0.0-4.0); HEMATOCRIT 39.8 % (35.0-46.0); HEMO FLAGS DIFF FINAL; LYMPH % 13.3 % (9.0-44.0); LYMPHOCYTE # 2.1 TH/MM3 (1.0-4.8); MEAN CELL VOLUME 77.5 FL (80.0-100.0); MEAN CORPUSCULAR HEMOGLOBIN 25.3 PG (27.0-34.0); MEAN CORPUSCULAR HGB CONC 32.6 % (32.0-36.0); MONO % 3.9 % (0.0-8.0); NEUT % 81.9 % (16.0-70.0); PLATELET COUNT 540 TH/MM3 (150-450); RED BLOOD COUNT 5.14 MIL/MM3 (4.00-5.30); RED CELL DISTRIBUTION WIDTH 14.6 % (11.6-17.2); WHITE BLOOD COUNT 15.6 TH/MM3 (4.0-11.0)
[2017-04-11] MEDS: RESP: ALBUTEROL 2.5 MG/IPRATROPIUM 0.5 MG NEB (PRN) NEB ×2 (07:32→19:42)
--- NOTE | 2017-04-11 08:07 | HHI.PR ---
Subjective Remarks Overall improving. Still has occasional episodes of cough paroxysms with wheezing. Tolerating oral intake. Objective Vitals Vital Signs Date Time Temp Pulse Resp B/P Pulse Ox O2 Delivery O2 Flow Rate FiO2 04/11/17 07:35 98 Nasal Cannula 2.00 04/11/17 00:00 97.0 76 20 108/75 93 04/10/17 20:00 97.0 79 20 143/88 96 04/10/17 20:00 97 Nasal Cannula 2.00 04/10/17 16:00 97.5 85 20 144/91 97 04/10/17 12:00 97.8 100 22 153/98 93 04/10/17 04/10/17 04/11/17 15:00 23:00 07:00 Intake Total 720 ml 240 ml 720 ml Balance 720 ml 240 ml 720 ml Intake Oral 720 ml 240 ml 720 ml # Voids 1 6 # Bowel Movements 0 1 GENERAL: Obese, Cooperative, alert and oriented. No apparent distress. Undergoing breathing treatment presently. SKIN: Warm and dry. HEAD: Normocephalic. EYES: No scleral icterus. No injection or drainage. NECK: Supple, trachea midline. No JVD or lymphadenopathy. CARDIOVASCULAR: Regular rate and rhythm without murmurs, gallops, or rubs. RESPIRATORY: Breath sounds equal bilaterally. No accessory muscle use. Slight expiratory wheeze bilateral bases. Occasional cough paroxysm with deep breathing. GASTROINTESTINAL: Abdomen soft, non-tender, nondistended. MUSCULOSKELETAL: No cyanosis, or edema. BACK: Nontender without obvious deformity. No CVA tenderness. Result Diagram: 04/11/17 0650 04/10/17 0535 Imaging Last Impressions Chest X-Ray 04/09/17 0000 Signed Impressions: Service Date/Time: April 08:42 - CONCLUSION: 1. No acute cardiopulmonary findings. Richard Hoover MD Last Impressions Chest X-Ray 04/08/17 1012 Signed Impressions: Service Date/Time: Saturday, April 08, 2017 10:35 - CONCLUSION: Consolidation involving the right lower lobe worrisome for infectious infiltrate. Celestino Waller Jr., MD Urinary Catheter: No Vascular Central Line Catheter: No A/P Problem List: (1) Chronic obstructive pulmonary disease with acute exacerbation Status: Acute Plan: Slowly improving. Continue current therapy. We'll decrease IV steroid dose. Patient is reluctant to convert to oral steroid and she states is "never helps me". Plan discharge home tomorrow. (2) Bronchitis Status: Acute Plan: As above. Doubt significant pneumonia. (3) Type 2 diabetes mellitus Status: Chronic Plan: Sugars have been elevated due to steroids. Continue current therapy. (4) Hypertension Status: Chronic Plan: Fair control continue therapy. (5) Hyperlipemia Status: Chronic Plan: Continue current treatment (6) Recurrent major depression Status: Chronic Plan: Continue medication. Appears well controlled presently. (7) Bipolar disorder Status: Chronic Plan: Continue current therapy. Assessment and Plan Discharge Planning Hopefully discharge home tomorrow. Problem Qualifiers (1) Hypertension: Qualified Code: I10 - Essential hypertension Merlin Rojas MD PhD Apr 11, 2017 08:07
[2017-04-11] MEDS: LOSARTAN 50 MG TAB PO SCH (08:39)
[2017-04-11] MEDS: oxyCODONE/ACETAMINOPHEN 5 MG/325 MG TAB PO PRN ×2 (08:39→17:21)
[2017-04-11] MEDS: PANTOPRAZOLE SOD 40 MG DELAYED RELEASE TAB PO SCH ×2 (08:39→20:07)
[2017-04-11] MEDS: LEVOFLOXACIN 750 MG PREMIX INJ 150 ML IV SCH (08:40)
[2017-04-11] MEDS: INSULIN ASPART SUPPLEMENTAL SCALE SQ SCH ×3 (11:00→20:13)
[2017-04-11] MEDS: ENOXAPARIN SODIUM 40 MG/0.4 ML SYRINGE SQ SCH (12:56)
[2017-04-11] MEDS: CITALOPRAM HYDROBROMIDE 40 MG TAB PO SCH (20:07)
[2017-04-11] MEDS: ATORVASTATIN 20 MG TAB PO SCH (20:07)
[2017-04-11] MEDS: ALPRAZolam 0.5 MG TAB PO PRN (20:13)
[2017-04-11] MEDS: ZOLPIDEM TARTRATE 10 MG TAB PO PRN (20:13)
[2017-04-11] MEDS: CARISOPRODOL 350 MG TAB PO PRN (20:13)
[2017-04-11] MEDS: guaiFENesin/DEXTROMETHORPHAN 200 MG/20 MG/10 ML CUP PO PRN (21:39)
[2017-04-12] VITALS: BP 145/82; PULSE 80; RESP 18; TEMP 98; O2SAT 94
[2017-04-12] MEDS: methylPREDNISolone SOD SUCC 40 MG/1 ML VIAL IV PUSH SCH (06:29)
[2017-04-12] MEDS: GLIMEPIRIDE 4 MG TAB PO SCH (06:29)
[2017-04-12 07:47] VITALS: O2SAT 98
--- NOTE | 2017-04-12 07:56 | HHI.PR ---
Subjective Remarks Feeling much better. Not using supplemental oxygen. No more wheezing. Desires discharge home. Objective Vitals Vital Signs Date Time Temp Pulse Resp B/P Pulse Ox O2 Delivery O2 Flow Rate FiO2 04/12/17 07:47 98 21 04/12/17 04:25 04/12/17 00:00 98.0 80 18 145/82 94 04/11/17 20:15 98.5 83 20 151/91 93 04/11/17 19:43 97 Nasal Cannula 1.00 04/11/17 18:21 20 04/11/17 16:00 97.8 90 20 143/87 95 04/11/17 12:00 97.6 96 18 142/90 94 04/11/17 08:00 98.0 96 20 149/93 93 04/11/17 04/11/17 04/12/17 15:00 23:00 07:00 Intake Total 1050 ml 240 ml Balance 1050 ml 240 ml Intake Oral 1050 ml 240 ml # Voids 8 3 3 # Bowel Movements 2 GENERAL: Obese, no acute distress, pleasant and cooperative. SKIN: Warm and dry. HEAD: Normocephalic. EYES: No scleral icterus. No injection or drainage. NECK: Supple, trachea midline. No JVD or lymphadenopathy. CARDIOVASCULAR: Regular rate and rhythm without murmurs, gallops, or rubs. RESPIRATORY: Breath sounds equal bilaterally. No accessory muscle use. GASTROINTESTINAL: Abdomen soft, non-tender, nondistended. Bowel sounds normal. MUSCULOSKELETAL: No cyanosis, or edema. BACK: Nontender without obvious deformity. No CVA tenderness. Result Diagram: 04/11/17 0650 04/10/17 0535 Imaging Last Impressions Chest X-Ray 04/09/17 0000 Signed Impressions: Service Date/Time: April 08:42 - CONCLUSION: 1. No acute cardiopulmonary findings. Richard Hoover MD Last Impressions Chest X-Ray 04/08/17 1012 Signed Impressions: Service Date/Time: Saturday, April 08, 2017 10:35 - CONCLUSION: Consolidation involving the right lower lobe worrisome for infectious infiltrate. Celestino Waller Jr., MD Urinary Catheter: No Vascular Central Line Catheter: No A/P Problem List: (1) Chronic obstructive pulmonary disease with acute exacerbation Status: Acute Plan: Plan discharge home today. Doing much better. Tapering dose steroid and short course of Levaquin. (2) Bronchitis Status: Acute Plan: As above. Doubt significant pneumonia. (3) Type 2 diabetes mellitus Status: Chronic Plan: Sugars have been elevated due to steroids. Continue current therapy. (4) Hypertension Status: Chronic Plan: Fair control continue therapy. (5) Hyperlipemia Status: Chronic Plan: Continue current treatment (6) Recurrent major depression Status: Chronic Plan: Continue medication. Appears well controlled presently. (7) Bipolar disorder Status: Chronic Plan: Continue current therapy. Assessment and Plan Discharge Planning Discharge home today Problem Qualifiers (1) Hypertension: Qualified Code: I10 - Essential hypertension Merlin Rojas MD PhD Apr 12, 2017 07:56
[2017-04-12] MEDS ORDERED: MEDR4PAK PO (08:00)
[2017-04-12] MEDS ORDERED: LEVO500T8 PO (08:00)
--- NOTE | 2017-04-12 08:04 | HHI.DS ---
Discharge Summary Admission Date Apr 08, 2017 at 12:01 Discharge Date: Apr 12, 2017 Admitting Diagnosis hypoxic resp failure,RLL pneumonia, COPD (1) Chronic obstructive pulmonary disease with acute exacerbation Diagnosis: Principal (2) Bronchitis Diagnosis: Principal (3) Type 2 diabetes mellitus Diagnosis: Secondary (4) Hypertension Diagnosis: Secondary (5) Hyperlipemia Diagnosis: Secondary (6) Recurrent major depression Diagnosis: Secondary (7) Bipolar disorder Diagnosis: Secondary Brief History This is a 51-year-old white female who started with a cough about five days ago. She has had intermittent wheezing. She has been coughing frequently, has had chest and nasal congestion and postnasal drip. She had some sweats in the last couple of nights but she has not checked her temperature. She had increased respiratory distress today and has some pleuritic type chest pain on the right side of her chest over the last couple days intermittently. She came to the ED where she was just slightly hypoxic. She was wheezing a lot. They have given her breathing treatments, even gave her some racemic epinephrine because she had some stridorous breath sounds around her neck. This seemed to help with her breathing and her increased upper airway sounds according to the ED doctor. According to the ED doctor she had been using her nebulizer treatments at home. A chest x-ray showed a consolidation in the right lower lobe. She is admitted for treatment of pneumonia and COPD exacerbation. She states at the time that I am seeing her that her breathing is better, her wheezing is better than when she was in the ED. She had an admission for COPD exacerbation last year at this time in April. CBC/BMP: 04/11/17 0650 04/10/17 0535 Significant Findings Laboratory Tests Test 04/10/17 04/11/17 05:35 06:50 White Blood Count 19.2 TH/MM3 15.6 TH/MM3 (4.0-11.0) (4.0-11.0) Mean Corpuscular Volume 79.4 FL 77.5 FL (80.0-100.0) (80.0-100.0) Mean Corpuscular Hemoglobin 25.0 PG 25.3 PG (27.0-34.0) (27.0-34.0) Mean Corpuscular Hemoglobin 31.4 % Concent (32.0-36.0) Platelet Count 512 TH/MM3 540 TH/MM3 (150-450) (150-450) Neutrophils (%) (Auto) 86.5 % 81.9 % (16.0-70.0) (16.0-70.0) Neutrophils # (Auto) 16.6 TH/MM3 12.8 TH/MM3 (1.8-7.7) (1.8-7.7) Blood Urea Nitrogen 24 MG/DL (7-18) Estimat Glomerular Filtration 80 ML/MIN (>89) Rate Random Glucose 186 MG/DL (74-106) Hospital Course Patient was admitted for asthmatic bronchitis with possible pneumonia. Repeat chest x-ray was normal. Sats overall relatively stable on minimal supplemental oxygen. Her wheezing gradually improved with IV steroids and antibiotics. She was able to be weaned off supplemental oxygen completely. On the day of discharge she was able to ambulate in the room with no trouble and saturations remained above 90% on room air. She will be discharged home on a tapering oral steroids and 3 days of Levaquin. She is advised to follow with her primary care physician within the next week. Pt Condition on Discharge: Fair Discharge Disposition: Discharge Home Discharge Instructions DIET: Follow Instructions for: Diabetic Diet Speech Therapy-Diet Recommends: Regular Activities you can perform: Regular-No Restrictions Other Activity Instructions: Start activity slowly and advance as tolerated Follow up Referrals: PCP Follow-up New Orders: CBC WITH DIFF - 2-3 Days New Medications: Levofloxacin (Levofloxacin) 500 Mg Tablet 500 MG PO DAILY Infection #3 Ref 0 TAB Methylprednisolone Dosepak (Medrol Dosepak) 4 Mg Dspk 4 MG PO DIRECTED Per Pharmacist direction #1 Ref 0 DSPK Continued Medications: Albuterol Neb (Albuterol Neb) 2.5 Mg/3 Ml Neb 2.5 INH NEB TID NEB PRN SHORTNESS OF BREATH #60 Ref 0 NEBULE Alprazolam (Alprazolam) 0.5 Mg Tab 0.5 MG PO Q6H PRN ANXIETY Ref 0 TAB Atorvastatin (Atorvastatin) 20 Mg Tab 20 MG PO HS Cholesterol Management #30 Ref 0 TAB Carisoprodol (Soma) 350 Mg Tab 350 MG PO BID PRN PAIN Ref 0 TAB Citalopram (Citalopram) 40 Mg Tab 40 MG PO HS Control Depression #30 Ref 0 TAB Estrogens, Conjugated (Premarin) 1.25 Mg Tab 1.25 MG PO DAILY Estrogen Supplements #30 Ref 0 TAB Glimepiride (Glimepiride) 4 Mg Tab 4 MG PO BIDAC Blood Sugar Management #60 Ref 0 TAB Losartan (Losartan) 50 Mg Tab 50 MG PO DAILY Blood Pressure Management #30 Ref 0 TAB Oxycodone-Acetaminophen (Oxycodone-Acetaminophen) 5-325 mg Tab 1 TAB PO TID PRN PAIN SCALE 1 TO 10 Ref 0 TAB Pantoprazole (Pantoprazole) 40 Mg Tab 40 MG PO BID Reflux #30 Ref 0 TAB Zolpidem (Zolpidem) 10 Mg Tab 10 MG PO HS PRN INSOMNIA Ref 0 TAB Merlin Rojas MD PhD Apr 12, 2017 08:04
== END 2017-04-12 08:29 | disposition home or self-care (01) | DRG 190 ==
LOC: PHED 10:02 → PHEDA 12:01 → PH3A 12:56
PROVIDERS: ADMIT Family Medicine; ATTEND Family Medicine
DX: J44.1 Chronic obstructive pulmonary disease with (acute) exacerbation (principal); J18.9 Pneumonia, unspecified organism; J96.01 Acute respiratory failure with hypoxia; Z68.41 Body mass index [BMI] 40.0-44.9, adult; F33.9 Major depressive disorder, recurrent, unspecified; J44.0 Chronic obstructive pulmonary disease with (acute) lower respiratory infection; Z87.891 Personal history of nicotine dependence; M19.90 Unspecified osteoarthritis, unspecified site; J45.909 Unspecified asthma, uncomplicated; F41.9 Anxiety disorder, unspecified; Z85.41 Personal history of malignant neoplasm of cervix uteri; E11.9 Type 2 diabetes mellitus without complications; M79.7 Fibromyalgia; I10 Essential (primary) hypertension; Z79.84 Long term (current) use of oral hypoglycemic drugs; E78.5 Hyperlipidemia, unspecified; N30.10 Interstitial cystitis (chronic) without hematuria; Z96.653 Presence of artificial knee joint, bilateral; E66.9 Obesity, unspecified
CPT/HCPCS: 70360; 71010; 71020; 80048; 82550; 82948; 83540; 83550; 84484; 85025; 93005; 94620; 94640; 94664; 96374; J0456; J0696; J1100; J1650; J1815; J1956; J2920; J7050